=== PATIENT | female | born 1950 | race Caucasian/White ===

== ENCOUNTER 2021-02-24 09:21 | Day surgery (SDC) | payer MEDICARE, OTHER ==
[2021-02-24] VITALS (9 sets, daily range): BP systolic 118–160; BP diastolic 64–81; PULSE 66–94; TEMP 98.4
[~2021-02-24] VITALS: Ht 170.2 cm; Wt 102.7 kg
[~2021-02-24 09:21] MED LIST: ASPIRIN 32325 MG/TAB PO; GLUCOPHAGE1000 MG PO; NORCO 325 MG-7.1 TAB PO; NORVASC 10MG10 MG PO; PRINIVIL20 MG PO; PROTONIX20 MG PO; TENORMIN 2525 MG/TAB PO
[2021-02-24] MEDS ORDERED: PROTONIX 40MG T40 MG PO (10:17)
[2021-02-24] MEDS ORDERED: CRESTOR20 MG PO (10:18)
[2021-02-24] MEDS ORDERED: ONE-A-DAY ESSE1 EACH PO (10:18)
[2021-02-24] MEDS ORDERED: D3 (10:21)
[2021-02-24] MEDS ORDERED: CALCIUM/D3 (10:22)
[2021-02-24] MEDS ORDERED: ACTOS30 MG PO (10:23)
[2021-02-24] MEDS ORDERED: CALCIUM WITH D31 CTB (10:23)
[2021-02-24] MEDS ORDERED: GLUCOTROL10 MG PO (10:24)
[2021-02-24] MEDS ORDERED: NORVASC 10MG10 MG PO (10:25)
[2021-02-24 10:42] LABS: HEMOGLOBIN 11.8 g/dl (12.5-16.0); MEAN CELL VOLUME 91 fl (80.0-100.0); MEAN CORPUSCULAR HEMOGLOBIN 29 pg (27.0-31.0); MEAN CORPUSCULAR HGB CONC 32 g/dl (33.0-37.0); MEAN PLATELET VOLUME 10.4 fl (7.4-10.4); PLATELET COUNT 266 K/mm3 (130-400); RED BLOOD COUNT 4.05 M/mm3 (4.10-5.30); REDCELL DISTRIBUTION WIDTH-CV 14.5 % (11.5-14.5)
[2021-02-24 10:43] LABS: HEMATOCRIT 36.9 % (37.0-47.0)
[2021-02-24 10:50] LABS: INR 1.1 (0.8-3.0); PROTHROMBIN TIME 11.7 SECONDS (9.7-12.8)
[2021-02-24 11:00] LABS: CALCIUM 10.1 mg/dL (8.4-10.2); CREATININE, serum 0.87 (0.52-1.25); POTASSIUM 4.8 mmol/L (3.4-5.0)
--- NOTE | 2021-02-24 11:48 | NUR ---
SEE MERGE DOCUMENTATION FOR MEDICATION ADMINISTRATION AND INTRA/POST PROCEDURE SEDATION ASSESSMENTS.
--- NOTE | 2021-02-24 12:30 | NUR ---
BS REPORT RECEIVED FROM HIRA HOLDER. PT IS BACK FROM [facility], SHE IS AWAKE AND ALERT, PWD WITH REG AND UNLABORED RESPIRATIONS.L NSR ON MONITOR. PT UPDATED ON POC, LUNCH ORDERED, CALL LIGHT IN REACH. TR BAND IN PLACE TO RT WRIST, CMS INTACT DISTAL.
--- NOTE | 2021-02-24 15:00 | NUR ---
PT has done well during her recovery. TR band has been deflated with no problem, rt radial site dressed with bandaid, folded 2x2 and coban. I have reviewed dc/fu and medication instructions with pt and her daughter. pt [id number] to hold metformin till sun am. they both deny questions at time of departure. pt has been ambulatory with steady gait.iv was dc'd with cath intact, dressing was applied. pt to exit via wheelchair.
== END 2021-02-24 18:24 | disposition home or self-care (01) ==
LOC: COL.CAR 09:21
PROVIDERS: Internal Medicine Interventional Cardiology
DX: I25.119 Atherosclerotic heart disease of native coronary artery with unspecified angina pectoris (principal); I87.2 Venous insufficiency (chronic) (peripheral); Z87.891 Personal history of nicotine dependence; Z79.84 Long term (current) use of oral hypoglycemic drugs; Z79.82 Long term (current) use of aspirin; Z79.899 Other long term (current) drug therapy; I10 Essential (primary) hypertension; K21.9 Gastro-esophageal reflux disease without esophagitis; E03.9 Hypothyroidism, unspecified; E11.9 Type 2 diabetes mellitus without complications
CPT/HCPCS: C1769; J1200; J1644; J2250; J2930; J3010